=== PATIENT | female | born 1980 | race Caucasian/White ===

== ENCOUNTER 2021-03-30 13:24 | Emergency (ER) | payer MEDICAID ==
[~2021-03-30 13:24] MED LIST: BACLOFEN20 M1 PO; CLARITIN 10 MG10 MG PO; DANTRIUM50 MG PO; HYDROCODON-ACE1 EAC7 PO; KEPPRA500 MG PO; PEPCID AC20 MG PO; ZANAFLEX4 MG PO
[2021-03-30 13:32] VITALS: Ht 154.9 cm
[2021-03-30 13:56] VITALS: BP 122/84
[2021-03-30 14:23] LABS: BASOPHILS 0.4 % (0-2); EOSINOPHILS 0.6 % (0-7); HEMATOCRIT 39.4 % (36.0-48.0); HEMOGLOBIN 12.9 g/dL (12-16); LYMPHOCYTES 14.5 % (15-50); MCH 27.1 pg (26.0-34.0); MCHC 32.8 g/dL (31.0-37.0); MCV 82.6 fL (80.0-100.0); MEAN PLATELET VOLUME 8.7 fL (7.4-10.4); MONOCYTES 7.5 % (2-11); PLATELET COUNT 268 10x3/uL (130-400); RBC 4.77 10x6/uL (4.00-5.40); RDW 14.9 % (11.5-14.5); WBC 8.5 10x3/uL (4.8-10.8)
[2021-03-30 14:33] LABS: CALC OSMOLALITY 266 mosm/kg (275-300); CALCIUM 9.6 mg/dL (8.5-10.1); CARBON DIOXIDE 34.9 mmol/L (21.0-32.0); CHLORIDE - SERUM 96 mmol/L (98-107); CREATININE - SERUM 0.4 mg/dL (0.6-1.3); GLUCOSE 88 mg/dL (74-106); POTASSIUM - SERUM 4.7 mmol/L (3.5-5.1); SODIUM 134 mmol/L (136-145); UREA NITROGEN 13 mg/dL (7-18); eGFR NON AFRICAN AMERICAN > 90 mL/min (90-120)
[2021-03-30 14:39] LABS: ALBUMIN 3.5 g/dL (3.4-5.0); ALKALINE PHOSPHATASE 108 U/L (30-120); ALT (SGPT) 24 U/L (10-68); BILIRUBIN - TOTAL 0.21 mg/dL (0.2-1.3)
[2021-03-30 16:27] LABS: BILIRUBIN NEGATIVE (NEGATIVE); KETONE NEGATIVE (NEGATIVE); NITRITE POSITIVE (NEGATIVE); UROBILINOGEN NORMAL mg/dL (< 2)
[2021-03-30 16:28] LABS: BACTERIA MANY HPF (NONE SEEN); WHITE CELLS - URINE 25-50 HPF (0-4)
[2021-03-30] MEDS ORDERED: LEVOFLOXACIN500 MG PO (17:19)
[2021-03-30] MEDS ORDERED: FLUCONAZOLE150 MG PO (17:19)
== END 2021-03-30 17:29 | disposition home or self-care (01) ==
LOC: D.ER 13:24
PROVIDERS: Emergency Medicine
DX: N30.91 Cystitis, unspecified with hematuria (principal); G82.50 Quadriplegia, unspecified